=== PATIENT | female | born 1960 | race Caucasian/White ===

== ENCOUNTER 2016-04-17 14:02 | Emergency (ER) | payer OTHER ==
[2016-04-17] MEDS ORDERED: IBUPROFEN 400 MG TAB PO STA (14:43)
[2016-04-17] MEDS ORDERED: SODIUM CHLORIDE 0.9% 1,000 ML IV ONE (14:43)
--- NOTE | 2016-04-17 16:30 | ED ---
Headache HPI - General Chief Complaint: Headache Stated Complaint: flu symptoms/SOB/headaches-sent by Dr. Huerta Seen by Provider: 04/17/16 14:31 Mode of arrival: wheelchair Limitations: no limitations - History of Present Illness Initial Comments: This patient is a 55-year-old woman who presents to be evaluated for a constellation of symptoms. She states that over the past 3 days or so she has started developing frontal headache, which is aching, moderate intensity, without any associated neurologic symptoms. She has also had a little bit of a nonproductive cough and at times feeling short of breath. She has had a couple of episodes of vomiting over the past 3 days, without seeing any blood or bile. The patient currently is denying chest or abdominal pain. No change in bowel movements. MD Complaint: headache Onset/Timin -: days(s) Onset Description: gradual Location: frontal Severity: moderate Quality: similar to previous headaches Consistency: constant Improves With: nothing Worsens With: none Context: occurred at rest Associated Symptoms: vomiting Other Symptoms: cough - Related Data Home Medications Medication Instructions Recorded Confirmed Amoxicillin 500 mg PO Q8H 04/17/16 04/17/16 Aspirin EC [Ecotrin Low Dose] 81 mg PO DAILY 04/17/16 04/17/16 Esomeprazole Magnesium [NexIUM] 40 mg PO DAILY 04/17/16 04/17/16 Lisinopril [Prinivil] 20 mg PO DAILY 04/17/16 04/17/16 Pitavastatin Calcium [Livalo] 4 mg PO DAILY 04/17/16 04/17/16 methylPREDNISolone [Medrol Dose See Taper PO DAILY 04/17/16 04/17/16 Pack] Allergies Allergy/AdvReac Type Severity Reaction Status Date / Time methylprednisolone Allergy Unknown Verified 04/17/16 14:51 Sulfa (Sulfonamide Allergy Unknown Verified 04/17/16 14:51 Antibiotics) Review of Systems ROS Statement: Those systems with pertinent positive or pertinent negative responses have been documented in the HPI. ROS Other: All systems not noted in ROS Statement are negative. Constitutional: Denies: fever, chills Respiratory: Reports: as per HPI, cough, dyspnea Cardiovascular: Denies: chest pain, palpitations, syncope Gastrointestinal: Reports: vomiting. Denies: abdominal pain, diarrhea, hematemesis, melena, hematochezia Genitourinary: Denies: dysuria, hematuria Musculoskeletal: Denies: back pain Skin: Denies: rash Neurological: Reports: as per HPI, headache. Denies: weakness, numbness, paresthesias Past Medical History Past Medical History: Hyperlipidemia, Hypertension Additional Past Medical History / Comment(s): mitral valve prolapse History of Any Multi-Drug Resistant Organisms: None Reported Past Surgical History: Orthopedic Surgery Additional Past Surgical History / Comment(s): shoulder and wrist Past Psychological History: No Psychological Hx Reported Smoking Status: Never smoker Past Alcohol Use History: None Reported Past Drug Use History: None Reported General Exam Limitations: no limitations General appearance: alert, in no apparent distress Head exam: Present: atraumatic, normocephalic Eye exam: Present: normal appearance, PERRL, EOMI. Absent: scleral icterus, conjunctival injection ENT exam: Present: mucous membranes moist, TM's normal bilaterally Neck exam: Present: normal inspection, full ROM. Absent: meningismus Respiratory exam: Present: normal lung sounds bilaterally. Absent: respiratory distress, wheezes, rales, rhonchi, stridor Cardiovascular Exam: Present: regular rate, normal rhythm, normal heart sounds. Absent: systolic murmur, diastolic murmur, rubs, gallop GI/Abdominal exam: Present: soft. Absent: distended, tenderness, guarding, rebound, mass Extremities exam: Present: normal inspection, normal capillary refill. Absent: pedal edema, calf tenderness Neurological exam: Present: alert, oriented X3, CN II-XII intact. Absent: motor sensory deficit Skin exam: Present: warm, dry, intact, normal color. Absent: rash Course Vital Signs 04/17/16 04/17/16 14:06 16:41 Temperature 98.3 F 98.6 F Pulse Rate 80 68 Respiratory 20 18 Rate Blood Pressure 159/80 148/83 O2 Sat by Pulse 98 98 Oximetry Medical Decision Making - Medical Decision Making Patient's 55-year-old woman presenting with headache, cough, couple rounds of vomiting, found to have influenza. Discussed further care and follow-up as well as return parameters. - Lab Data Lab Results 04/17/16 Range/Units 14:55 Influenza Type A RNA Detected H (Not Detectd) Influenza Type B (PCR) Not Detected (Not Detectd) Disposition Clinical Impression: Influenza Disposition: HOME SELF-CARE Condition: Fair Instructions: Influenza (ED) Referrals: Jyoti Valentino MD [Primary Care Provider] - 1-2 days
[2016-04-17 16:42] VITALS: BP 148/83; PULSE 68; RESP 18; TEMP 98.6
== END 2016-04-17 16:42 | disposition home or self-care (01) ==
LOC: EC 14:02
DX: J11.1 Influenza due to unidentified influenza virus with other respiratory manifestations (principal); I10 Essential (primary) hypertension; E78.5 Hyperlipidemia, unspecified; Z79.82 Long term (current) use of aspirin; Z79.52 Long term (current) use of systemic steroids; Z79.899 Other long term (current) drug therapy; Z88.2 Allergy status to sulfonamides; Z88.8 Allergy status to other drugs, medicaments and biological substances
CPT/HCPCS: 87502; 96360; 99284